=== PATIENT | male | born 1960 ===

== ENCOUNTER → 2018-07-25 | Outpatient (CLI) | payer OTHER ==
[~2018-07-25] VITALS: Ht 185.4 cm; Wt 106.6 kg
[~2018-07-25] MED LIST: ESZOPICLONE3 MG PO; GINKGO BILOBA120 M1 PO; IBUPROFEN 200200 M1 PO; MAGOX 400400 MG PO; TESTOSTERO200 MG/1 M IM; VITAMINC500 PO; XANAX 0.5 MG0.5 MG PO
--- NOTE | ~2018-07-25 | P ---
[facility] [place] [address] PROCEDURE REPORT Name: AP MCFARLANE Room #: REG GUILLERMO Solo#: [id number] Admission: 07/25/18 ������������������ Attend Phys: Randall Juarez Discharge: ������������������ Date of : 58 Report #: [id number] THIS REPORT FOR: //name// CC: Randall Patino MD DATE OF SERVICE: 07/25/2018 PROCEDURE PERFORMED: Colonoscopy. HISTORY OF PRESENT ILLNESS: The patient is a 58-year-old male with a history of colon polyps approximately 5 years ago, here for routine followup. Denies any symptoms other than some mild anorectal pain at times. No family history of colon cancer. DESCRIPTION OF PROCEDURE: The risks and benefits of the procedure were explained to the patient, those risks including but not limited to bleeding, perforation and the risk of sedation. He understood these risks and gave informed consent. Sedation was given using propofol per anesthesia. Next, a digital rectal exam was initially performed, which was normal. Next, using a standard Olympus colonoscope, the scope was placed in the patient's anus and advanced under direct vision to the cecum. The overall prep was excellent. The cecum and ileocecal valve were normal in appearance. Ascending, transverse, descending and sigmoid colon were all normal. The rectal mucosa was normal. On retroflexion, no abnormalities were noted. Close examination of the anal canal showed a small anal fissure in the 12 o'clock position. No evidence of bleeding. Scope was then withdrawn and the procedure terminated. The patient tolerated the procedure well. IMPRESSION: 1. Small anal fissure. 2. Otherwise, normal colonoscopy. RECOMMENDATIONS: 1. Analpram b.i.d. for one week and then on a p.r.n. basis. 2. Repeat colonoscopy in 10 years. Thank you for allowing me to participate in his care. ��������������������������������������������� ���������������������������������������� By: ��������������������������������������������� [id number] Randall Dunne MD /nt
== END | disposition home or self-care (01) ==
LOC: GI 07:03
DX: Z12.11 Encounter for screening for malignant neoplasm of colon (principal); Z86.010 Personal history of colon polyps; K60.2 Anal fissure, unspecified; K21.9 Gastro-esophageal reflux disease without esophagitis; Z98.890 Other specified postprocedural states; Z79.899 Other long term (current) drug therapy
CPT/HCPCS: 62110; 62900